=== PATIENT | female | born 1970 | race Caucasian/White ===

== ENCOUNTER → 2020-06-11 08:42 | Outpatient (CLI) | payer BC, SELFPAY ==
[2020-06-11 09:41] LABS: COVID19 -Nasal RAPID Negative (Negative)
== END ==
PROVIDERS: PCP Nurse Practitioner Family; Referring Provider Internal Medicine; Visit Provider Internal Medicine
DX: Z20.822 Contact with and (suspected) exposure to COVID-19 (principal)
CPT/HCPCS: 87635; C9803

== ENCOUNTER → 2020-06-11 10:53 | Outpatient (CLI) | payer BC, SELFPAY ==
--- NOTE | 2020-06-16 09:04 | PM.PFT.1 ---
Pulmonary Function Test Referral & Results Date Patient Seen: 06/11/20 Requesting provider: Radha Davis Results: The spirometry demonstrates an FVC of 5.0 L which is 118% of predicted. The FEV1 was measured at 4.02 L which is 120% of predicted. The FEV1/FVC ratio was 80 which is 99% of predicted. Following the administration of bronchodilator there was no appreciable change to above normal numbers. Lung volumes show an SVC of 4.76 L which is 124% of predicted. The diffusing capacity was measured at 24.51 which is 79% of predicted. No hemoglobin value was provided, so no correction for potential anemia could be made, if appropriate. The maximum voluntary ventilation was normal Interpretation: This study demonstrates normal spirometry There may be a minimal reduction in diffusing capacity suggesting minimal disease at the capillary alveolar, unless patient is anemic as above. Clinical correlation suggested
== END ==
PROVIDERS: PCP Nurse Practitioner Family; Referring Provider Nurse Practitioner Family; Visit Provider Nurse Practitioner Family
DX: R06.02 Shortness of breath (principal); J98.8 Other specified respiratory disorders; Z87.891 Personal history of nicotine dependence; Z20.822 Contact with and (suspected) exposure to COVID-19
CPT/HCPCS: 87635; 94060; 94726; 94729; C9803

== ENCOUNTER → 2020-07-22 08:31 | Outpatient (CLI) | payer BC, SELFPAY ==
--- NOTE | 2020-07-22 | DI.RAD.S_ITS ---
PROCEDURE: XR CHEST 2V INDICATIONS: Shortness of breath TECHNIQUE: 2 views of the chest were acquired. COMPARISON: None. FINDINGS: Surgical changes and devices: None. Lungs and pleura: Lungs are clear. No pleural effusions or pneumothorax. Mediastinum: Mediastinal contours are normal. Heart size is normal. Bones and chest wall: No suspicious bony abnormalities. Soft tissues appear unremarkable. IMPRESSION: Normal for age, source of current shortness of breath symptoms is not seen. Dictated by: Srini Galarza M.D. on 07/22/2020 at 10:58 Approved by: Srini Galarza M.D. on 07/22/2020 at 10:59
== END ==
PROVIDERS: PCP Nurse Practitioner Family; Referring Provider Nurse Practitioner Family; Visit Provider Nurse Practitioner Family
DX: R06.02 Shortness of breath (principal)
CPT/HCPCS: 71046